=== PATIENT | female | born 1965 | race American Indian/Alaskan Native ===

== ENCOUNTER 2019-02-11 15:47 | Emergency (ER) | payer OTHER ==
[2019-02-11 16:11] VITALS: BP 144/55
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
[2019-02-11 16:50] LABS: Basophils % (Auto) 0.5 % (0.0-1.8); Eosinophils # (Auto) 0.2 K/mm3 (0.0-0.4); Eosinophils % (Auto) 1.8 % (0.0-4.3); Hematocrit 34.8 % (30.3-42.9); Hemoglobin 11.2 gm/dl (10.1-14.3); Lymphocytes # (Auto) 2.6 K/mm3 (1.2-5.4); Lymphocytes % (Auto) 27.2 % (13.4-35.0); Mean Corpuscular HGB Conc 32 % (30-34); Mean Corpuscular Volume 81 fl (79-97); Monocytes # (Auto) 0.7 K/mm3 (0.0-0.8); Monocytes % (Auto) 7.1 % (0.0-7.3); Platelet Count 338 K/mm3 (140-440); Red Blood Count 4.29 M/mm3 (3.65-5.03); Red Cell Distribution Width 17.6 % (13.2-15.2)
--- NOTE | 2019-02-11 17:06 | XRay Report ---
THORACIC SPINE 2 VIEWS. INDICATION / CLINICAL INFORMATION: back pain COMPARISON: None available. FINDINGS: BONES / JOINT(S): No acute fracture or subluxation. Mild scattered degenerative disc disease. SOFT TISSUES: No significant abnormality. ADDITIONAL FINDINGS: None. Signer Name: Homer Stone MD Signed: 02/11/2019 5:02 PM Workstation Name: [id number]
[2019-02-11 17:11] LABS: BUN/Creatinine Ratio 21; Blood Urea Nitrogen 19 mg/dL (7-17); Hemolysis Index 3
[2019-02-11] MEDS ORDERED: MORPHINE IV ONE (20:13)
[2019-02-11] MEDS ORDERED: NACL 0.9% 1000 ML 1,000 ML IV ONE (20:13)
[2019-02-11] MEDS ORDERED: ZOFRAN IV ONE (20:13)
[2019-02-12 01:26] LABS: Bacteria,Urine 1+ /HPF (Negative); Bilirubin,Urine NEG (Negative); Blood,Urine NEG (Negative); Color,Urine Yellow (Yellow); Protein,Urine <15 mg/dL mg/dL (Negative); Urobilinogen,Urine < 2.0 mg/dL (<2.0); WBC,Urine < 1.0 /HPF (0.0-6.0)
[2019-02-12 01:45] LABS: Alanine Aminotransferase 16 units/L (7-56); Albumin 3.9 g/dL (3.9-5)
[2019-02-12 01:50] LABS: Bilirubin,Direct < 0.2 mg/dL (0-0.2)
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
--- NOTE | 2019-02-12 10:05 | Cat Scan Report ---
CT chest wo con, CT abdomen pelvis wo con INDICATION: MAIN: abdominal pain; INJURY TO CHEST AT STERNAL AREA AND UPPER ABDOMEN. TECHNIQUE: All CT scans at this location are performed using CT dose reduction for ALARA by means of automated e xposure control. COMPARISON: None available. FINDINGS: CT chest Multiple very small aortopulmonary, pretracheal and subcarinal nodes, probably reactive. Descending a nd transverse portions of the thoracic aorta are normal in caliber, but the entire descending aorta i s abnormally dilated, measuring between 5 and 5.8 cm diameter. History is noted. Previous sternotomy, with no definite sternal fracture. However, the very anterior, cartilaginous aspect of the left first rib appears to be fractured. No pneumothorax. No pulmonary co ntusion or pleural fluid. CT ABDOMEN: Liver, gallbladder, spleen, pancreas, right kidney and both adrenals are negative on this noncontrast exam. Left collecting system is duplicated, with marked dilatation of the upper pole collecting syst em and ureter draining the upper pole. Mid and lower pole collecting system is unremarkable. Suprarenal abdominal aorta is abnormally dilated, maximum diameter 4.6 cm. Infrarenal aorta is normal in caliber. CT PELVIS: Normal appendix. Left ureter is dilated throughout its length to the junction with the urinary bladde r. Uterus and ovaries appear negative. No free fluid. No significant skeletal abnormalities, other than the described cartilaginous portion of the left fir st rib. IMPRESSION: 1. Minimally displaced fracture of the cartilaginous aspect of the left first rib. 2. Aneurysmal dilatation of virtually the entire descending aorta, except the most distal portion, an d the suprarenal abdominal aorta. On this noncontrast exam, these areas of dilatation are not obvious ly traumatic. 3. Duplicated left renal collecting system, with long-standing obstruction and subsequent dilatation of the upper pole collecting system and ureter. 4. No definite evidence of acute organ injury, given limitations of noncontrast technique. Signer Name: Ramesh Tamayo MD Signed: 02/11/2019 10:26 PM Workstation Name: [id number]
== END 2019-02-12 02:35 | disposition home or self-care (01) ==
LOC: ED 15:47
DX: S22.32XA Fracture of one rib, left side, initial encounter for closed fracture (principal); S30.1XXA Contusion of abdominal wall, initial encounter; I10 Essential (primary) hypertension; E11.9 Type 2 diabetes mellitus without complications; Z98.890 Other specified postprocedural states; Z79.899 Other long term (current) drug therapy; Z79.4 Long term (current) use of insulin; Z88.0 Allergy status to penicillin; Z88.8 Allergy status to other drugs, medicaments and biological substances; Z88.1 Allergy status to other antibiotic agents; Z91.041 Radiographic dye allergy status; W22.8XXA Striking against or struck by other objects, initial encounter; Y93.89 Activity, other specified; Y92.89 Other specified places as the place of occurrence of the external cause; Y99.8 Other external cause status
CPT/HCPCS: 36415; 71250; 72070; 74176; 80048; 80076; 81001; 84484; 85025; 93005; 93010; 96374; 96375; 99284; J2270; J2405; J7030; 96361

== ENCOUNTER 2019-05-24 10:51 | Emergency (ER) | payer BC, OTHER ==
[2019-05-24] MEDS ORDERED: ASPIRIN 325 MG TAB PO ONE (10:56)
--- NOTE | 2019-05-24 11:21 | Event Note ---
ED Screening Note Date of service: 05/24/19 Time: : ED Screening Note: 54 y o feamle with PMH of HTN, DM presents for chest pain x today This initial assessment/diagnostic orders/clinical plan/treatment(s) is/are subject to change based on patients health status, clinical progression and re- assessment by fellow clinical providers in the ED. Further treatment and workup at subsequent clinical providers discretion. Patient/guardian urged not to elope from the ED as their condition may be serious if not clinically assessed and managed. Initial orders include: CP protocol placed
[2019-05-24 11:41] LABS: Basophils # (Auto) 0.1 K/mm3 (0.0-0.1); Basophils % (Auto) 0.6 % (0.0-1.8); Eosinophils # (Auto) 0.2 K/mm3 (0.0-0.4); Eosinophils % (Auto) 1.5 % (0.0-4.3); Hematocrit 40.1 % (30.3-42.9); Hemoglobin 12.7 gm/dl (10.1-14.3); Lymphocytes # (Auto) 2.7 K/mm3 (1.2-5.4); Lymphocytes % (Auto) 23.9 % (13.4-35.0); Mean Corpuscular HGB Conc 32 % (30-34); Mean Corpuscular Volume 82 fl (79-97); Monocytes # (Auto) 0.8 K/mm3 (0.0-0.8); Monocytes % (Auto) 6.8 % (0.0-7.3); Platelet Count 410 K/mm3 (140-440); Red Blood Count 4.87 M/mm3 (3.65-5.03); Red Cell Distribution Width 18.1 % (13.2-15.2)
[2019-05-24 11:54] LABS: BUN/Creatinine Ratio 15; Blood Urea Nitrogen 19 mg/dL (7-17); Calcium 9.8 mg/dL (8.4-10.2); Hemolysis Index 0
--- NOTE | 2019-05-24 12:01 | XRay Report ---
CHEST 1 VIEW 05/24/2019 11:35 AM INDICATION / CLINICAL INFORMATION: Chest Pain. COMPARISON: Chest x-ray on 02/11/2019. FINDINGS: SUPPORT DEVICES: None. HEART / MEDIASTINUM: Unchanged dilation of the descending thoracic aorta. Normal heart size. LUNGS / PLEURA: No significant pulmonary or pleural abnormality. No pneumothorax. ADDITIONAL FINDINGS: No significant additional findings. IMPRESSION: 1. No acute findings. No adverse change from prior exams. Signer Name: Raciel Barraza MD Signed: 05/24/2019 11:57 AM Workstation Name: [id number]
[2019-05-24] MEDS ORDERED: SODIUM CHLORIDE 0.9% 1000 ML 1,000 ML IV ONE (15:09)
[2019-05-24] MEDS ORDERED: FAMOTIDINE 20 MG/2 ML INJ IV ONE ×2 (15:10→17:12)
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
[2019-05-24 15:43] LABS: Alanine Aminotransferase 9 units/L (7-56); Albumin 3.9 g/dL (3.9-5)
[2019-05-24 15:46] LABS: Bilirubin,Direct < 0.2 mg/dL (0-0.2)
[2019-05-24] MEDS: FAMOTIDINE 20 MG/2 ML INJ IV ONE ×2 (15:54→17:10)
[2019-05-24] MEDS: diphenhydrAMINE 50 MG/ML VIAL IV ONE ×2 (15:54→17:10)
[2019-05-24] MEDS: methylPREDNISolone Sod Succinate 125 MG/2 ML INJ IV ONE ×2 (15:54→17:10)
[2019-05-24] MEDS ORDERED: diphenhydrAMINE 50 MG/ML VIAL IV ONE (17:10)
[2019-05-24] MEDS ORDERED: methylPREDNISolone Sod Succinate 125 MG/2 ML INJ IV ONE (17:10)
[2019-05-24] MEDS ORDERED: methylPREDNISolone Sod Succinate 125 MG/2 ML INJ ONE (17:12)
[2019-05-24] MEDS ORDERED: ACETAMINOPHEN 325 MG TAB PO ONE (17:45)
--- NOTE | 2019-05-24 18:25 | Cat Scan Report ---
CT angiography of the chest with 2-D reconstructions INDICATION: Postop chest pain Thin section axial images were obtained as well as 2-D reformatted MIP images in all 3 planes COMPARISON: 02/11/2019 FINDINGS: There is no hilar or mediastinal adenopathy. No pleural or pericardial effusion. Lung windo ws show no nodules, masses or infiltrates. There is no dissection present. Ascending aortic graft is in place appearing essentially unchanged. There is no definite dissection seen. The dilated descendin g thoracic aorta is again seen. There is no distal dissection or penetrating aortic ulcer. However, t here is possible high density now seen in the wall of the descending thoracic aorta especially inferi pamela and this may represent an intramural hematoma. Repeat study without contrast may be of benefit f or confirmation. Otherwise no definite change. IMPRESSION: I am suspicious of an intramural hematoma involving the descending aorta. Follow-up nonco ntrast study may be of benefit to confirm the presence of high density hematoma. Automated exposure control was utilized to diminish radiation dose. Signer Name: Víctor Rasmussen MD Signed: 05/24/2019 6:20 PM Workstation Name: [id number]
--- NOTE | 2019-05-24 18:36 | Cat Scan Report ---
CT angio abdomen pelvis INDICATION: Chest pain, history of ascending aortic aneurysm repair. TECHNIQUE: CTA abdomen and pelvis with IV contrast. 3 plane MIP reconstructions were produced. All CT scans at this location are performed using CT dose reduction for ALARA by means of automated exposure control. The patient received 60 mL of IV Omnipaque 350 COMPARISON: CT of the abdomen and pelvis on 02/11/2019 FINDINGS: The contemporaneous CTA of the chest is dictated in a separate report. Vascular findings: There is an unchanged suprarenal abdominal aortic aneurysm measuring up to about 3.6 x 3.9 cm in grea test dimension. The remainder of the abdominal aorta is normal in caliber. There is no focal stenosis or evidence of dissection in the abdominal aorta. The branch vessels from the abdominal aorta demons trate no significant stenosis or aneurysm. There is no significant stenosis or aneurysm in the pelvic arteries. Nonvascular findings: The solid abdominal organs demonstrate no acute findings. There are stable findings of a duplicated l eft renal collecting system with chronic obstruction of the upper pole of the left kidney and renal c ortical thinning. There are no acute bowel abnormalities. IMPRESSION: 1. Stable suprarenal abdominal aortic aneurysm compared with 02/11/2019. No acute vascular abnormality in the abdomen. 2. Contemporaneous CTA of the chest is dictated under a separate report. 3. No acute findings in the abdomen and pelvis. Signer Name: Raciel Barraza MD Signed: 05/24/2019 6:31 PM Workstation Name: [id number]
[2019-05-24] MEDS ORDERED: ACETAMINOPHEN 325 MG TAB ONE (20:18)
[2019-05-24 21:05] LABS: Bilirubin,Urine NEG (Negative); Blood,Urine NEG (Negative); Color,Urine Straw (Yellow); Mucus,Urine FEW /HPF; Protein,Urine <15 mg/dL mg/dL (Negative); RBC,Urine < 1.0 /HPF (0.0-6.0); Urobilinogen,Urine < 2.0 mg/dL (<2.0)
--- NOTE | 2019-05-24 23:34 | Consultation ---
History of Present Illness - Reason for Consult Consult date: 05/24/19 - History of Present Illness HPI: 54yo female with history of emergent ascending thoracic aortic repair 6 years ago in [facility] presents with acute chest, back and flank pain starting about 10am. The patient states this pain is similar to her prior aortic repair. 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 The patient states the pain is still present on evaluation. She denies lower extremity claudication or abdominal pain. ROS: as per HPI PE: NAD, A&Ox3 non-labored respirations RRR equal 2+ pulses noted at the radial and femoral arteries bilaterally palpable DP pulses bilaterally CTA reviewed Plan: patient with symptomatic thoracic aortic aneurysm patient to be better evaluated by CT surgery for appropriate management patient to be transferred to [place] continue with pain, BP and HR management Medications and Allergies Allergies Allergy/AdvReac Type Severity Reaction Status Date / Time erythromycin base Allergy Unknown Verified 10/21/15 18:47 Iodinated Contrast Media Allergy Anaphylaxis Verified 10/21/15 18:47 [Iodinated Contrast Media - IV Dye] Penicillins Allergy Unknown Verified 10/21/15 18:47 shellfish derived Allergy Angioedema Verified 05/24/19 10:53 Home Medications Medication Instructions Recorded Confirmed Last Taken Type Acetaminophen [Acetaminophen TAB] 650 mg PO Q4H PRN #1 tablet 10/23/15 Unknown Rx Albuterol *Only Ed* [Proventil 1 mg IH Q4HRT PRN #1 nebu 10/23/15 Unknown Rx 0.5% NEBS] Bisacodyl [Dulcolax suppos] 10 mg [place] QDAY PRN #1 supp.rect 10/23/15 Unknown Rx DOXYCYCLINE Hyclate [Vibramycin 100 mg PO Q12HR #1 capsule 10/23/15 Unknown Rx CAP] Docusate Sodium [Colace CAP] 100 mg PO BID capsule 10/23/15 Unknown Rx Furosemide [Lasix TAB] 20 mg PO QDAY #1 tablet 10/23/15 Unknown Rx Glimepiride [Amaryl] 4 mg PO QAM tablet 10/23/15 Unknown Rx Insulin Glulisine [Apidra] 0 units SUB-Q ACHS units 10/23/15 Unknown Rx Ipratropium/Albuterol Sulfate 1 ampul IH TIDRT ampul.neb 10/23/15 Unknown Rx [DUONEB *Not for PRN Use*] Lisinopril [Zestril TAB] 5 mg PO BID tablet 10/23/15 Unknown Rx Metoprolol [Lopressor TAB] 100 mg PO BID tablet 10/23/15 Unknown Rx Sennosides Tab [Senokot] 8.6 mg PO ONCE tablet 10/23/15 Unknown Rx Vancomycin/Ns 1 gm/250 ml 1.25 gm IV Q12HR #1 vial.port 10/23/15 Unknown Rx levoFLOXacin 750MG/150ML [Levaquin 750 mg IV QDAY #1 piggyback 10/23/15 Unknown Rx IV PREMIX] metFORMIN [Glucophage] 500 mg PO BID tablet 10/23/15 Unknown Rx traZODone [Desyrel] 100 mg PO QHS tablet 10/23/15 Unknown Rx Naproxen [Naprosyn] 500 mg PO Q12H PRN #20 tablet 02/12/19 Unknown Rx tiZANidine [Zanaflex 4mg TAB] 4 mg PO Q8H PRN #15 tablet 02/12/19 Unknown Rx traMADoL [Ultram] 50 mg PO Q6HR PRN #15 tablet 02/12/19 Unknown Rx Exam - Constitutional Vitals: Temp Pulse Resp BP Pulse Ox 98.6 F 102 H 21 137/58 96 05/24/19 19:20 05/24/19 23:23 05/24/19 22:30 05/24/19 23:23 05/24/19 22:30 Results - Labs CBC & Chem 7: 05/24/19 11:15 05/24/19 11:15 Labs: Abnormal lab results 05/24/19 05/24/19 05/24/19 Range/Units 11:15 11:15 11:15 WBC 11.5 H (4.5-11.0) K/mm3 MCH 26 L (28-32) pg RDW 18.1 H (13.2-15.2) % Seg Neutrophils # 7.8 H (1.8-7.7) K/mm3 Carbon Dioxide 21 L (22-30) mmol/L BUN 19 H (7-17) mg/dL Creatinine 1.3 H (0.7-1.2) mg/dL Glucose 238 H (65-100) mg/dL Alkaline Phosphatase 135 H (35-129) units/L Total Protein 9.0 H (6.3-8.2) g/dL Ur Specific [place] (1.003-1.030) 05/24/19 Range/Units 20:07 WBC (4.5-11.0) K/mm3 MCH (28-32) pg RDW (13.2-15.2) % Seg Neutrophils # (1.8-7.7) K/mm3 Carbon Dioxide (22-30) mmol/L BUN (7-17) mg/dL Creatinine (0.7-1.2) mg/dL Glucose (65-100) mg/dL Alkaline Phosphatase (35-129) units/L Total Protein (6.3-8.2) g/dL Ur Specific [place] 1.043 H (1.003-1.030)
[2019-05-24] MEDS ORDERED: MORPHINE 4 MG/1 ML INJ IV ONE (23:40)
[2019-05-24] MEDS ORDERED: MORPHINE 2 MG/1 ML INJ ONE (23:41)
[2019-05-25 02:11] VITALS: BP 119/48
== END 2019-05-25 02:42 | disposition short-term general hospital (02) ==
LOC: ED 10:51
DX: I71.03 Dissection of thoracoabdominal aorta (principal); I10 Essential (primary) hypertension; E11.9 Type 2 diabetes mellitus without complications; R11.2 Nausea with vomiting, unspecified; Z91.041 Radiographic dye allergy status; Z88.0 Allergy status to penicillin; Z88.1 Allergy status to other antibiotic agents; Z79.899 Other long term (current) drug therapy; Z79.1 Long term (current) use of non-steroidal anti-inflammatories (NSAID); Z91.013 Allergy to seafood
CPT/HCPCS: 36415; 71045; 71275; 74174; 80048; 80076; 81001; 82550; 83690; 83735; 84484; 85025; 87086; 93005; 93010; 96361; 96374; 96375; 96376; 99291; J1200; J2270; J2930; J7030; Q9967